=== PATIENT | male | born 1970 | race Caucasian/White ===

== ENCOUNTER → 2016-08-11 | Outpatient (CLI) | payer MEDICARE | LOC: SLEEP 21:30 | DX: G47.33 Obstructive sleep apnea (adult) (pediatric) (principal) | CPT/HCPCS: 95811 ==

== ENCOUNTER 2016-09-10 10:32 | Emergency (ER) | payer MEDICARE ==
[2016-09-10 12:04] LABS: HEMOGLOBIN 12.9 gm/dl (14.0-17.5); RED BLOOD COUNT 4.33 M/UL (4.20-5.50); WHITE BLOOD COUNT 9.9 K/UL (4.5-11.0)
[2016-09-10 12:19] LABS: BUN/CREATININE RATIO 26 (0-10)
== END 2016-09-10 13:45 | disposition home or self-care (01) ==
LOC: ER1 10:32
PROVIDERS: Emergency Medicine
DX: L03.115 Cellulitis of right lower limb (principal); I10 Essential (primary) hypertension; J44.9 Chronic obstructive pulmonary disease, unspecified; M19.90 Unspecified osteoarthritis, unspecified site; G47.30 Sleep apnea, unspecified
CPT/HCPCS: 36415; 80048; 85025; 93971; 99284

== ENCOUNTER 2017-01-22 00:26 | Emergency (ER) | payer MEDICARE | END 2017-01-23 02:50 | disposition home or self-care (01) | LOC: ER1 00:26 | DX: T82.898A Other specified complication of vascular prosthetic devices, implants and grafts, initial encounter (principal); L03.115 Cellulitis of right lower limb; I10 Essential (primary) hypertension; R60.0 Localized edema; F17.210 Nicotine dependence, cigarettes, uncomplicated | CPT/HCPCS: 96374; 99283; J0878; J7050 ==

== ENCOUNTER → 2017-01-23 | Outpatient (CLI) | payer MEDICARE | LOC: OPSV 10:05 | DX: L97.309 Non-pressure chronic ulcer of unspecified ankle with unspecified severity (principal) ==

== ENCOUNTER → 2021-10-04 | Outpatient (CLI) | payer OTHER ==
[~2021-10-04] MED LIST: BACTROBAN NASAL1 G1 TOP; KEFLEX CAP 500500 MG PO; PREDNISONE 50 M50 MG PO
== END ==
LOC: KOH-I 14:08
DX: M54.2 Cervicalgia (principal); M54.6 Pain in thoracic spine; M54.50 Low back pain, unspecified; R05.9 Cough, unspecified
CPT/HCPCS: 71046; 72040; 72070; 72100

== ENCOUNTER → 2021-10-11 | Outpatient (CLI) | payer OTHER | LOC: HEART 5 14:20 | DX: J44.9 Chronic obstructive pulmonary disease, unspecified (principal) | CPT/HCPCS: 94060; 94729 ==

== ENCOUNTER 2021-10-24 11:41 | Emergency (ER) | payer OTHER ==
[~2021-10-24] VITALS: Ht 185.4 cm; Wt 172.4 kg
[2021-10-24 13:27] LABS: HEMOGLOBIN 16.1 gm/dl (14.0-17.5); RED BLOOD COUNT 5.19 M/UL (4.20-5.50); WHITE BLOOD COUNT 29.9 K/UL (4.5-11.0)
[2021-10-24 15:21] LABS: ADENOVIRUS F 40/41 Not Detected (Negative); ASTROVIRUS Not Detected (Negative); CAMPYLOBACTER Not Detected (Negative); CRYPTOSPORIDIUM Not Detected (Negative); E.COLI 0157 Not Detected (Negative); ENTAMOEBA HISTOLYTICA Not Detected (Negative); ENTEROAGGREGATIVE E.COLI (EAEC Not Detected (Negative); ENTEROPATHOGENIC E.COLI (EPEC) Not Detected (Negative); ENTEROTOXIGENIC E.COLI (ETEC) Not Detected (Negative); GIARDIA LAMBLIA Not Detected (Negative); NOROVIRUS GI/GII Not Detected (Negative); PLESIOMONAS SHIGELLOIDES Not Detected (Negative); ROTOVIRUS A Not Detected (Negative); SALMONELLA Not Detected (Negative); SAPOVIRUS Not Detected (Negative); SHIG/ENTEROINVAS.ECOLI (EIEC) Not Detected (Negative); SHIGA-LIK TOX.PRO.E.COLI (STEC Not Detected (Negative); VIBRIO Not Detected (Negative); VIBRIO CHOLERAE Not Detected (Negative); YERSINIA ENTEROCOLITICA Not Detected (Negative)
[2021-10-24 17:11] LABS: CLOSTRIDIUM DIFFICILE TOX A/B Not Detected (Negative)
[2021-10-25 10:39] LABS: CANDIDA ALBICANS Not Detected (Negative); CANDIDA KRUSEI Not Detected (Negative); CANDIDA TROPICALIS Not Detected (Negative); ESCHERICHIA COLI Not Detected (Negative); HAEMOPHILUS INFLUENZAE Not Detected (Negative); KLEBSIELLA OXYTOCA Not Detected (Negative); KLEBSIELLA PNEUMONIAE Not Detected (Negative); KPC-CARBAPENEM-RESISTANCE GENE Not Detected (Negative); PROTEUS Not Detected (Negative); PSEUDOMONAS AERUGINOSA Not Detected (Negative); SERRATIA MARCESANS Not Detected (Negative); STAPHYLOCOCCUS AUREUS Not Detected (Negative); STREP AGALACTIAE (GROUP B) Not Detected (Negative); STREP PYOGENES (GROUP A) Not Detected (Negative); STREPTOCOCCUS Not Detected (Negative); vanA/B (VANCOMYCIN RESIST GENE Not Detected (Negative)
[2021-10-25 10:40] LABS: STAPHYLOCOCCUS DETECTED (Negative)
== END 2021-10-24 19:30 | disposition short-term general hospital (02) ==
LOC: ER1 11:41
PROVIDERS: Physician Assistant
DX: T79.6XXA Traumatic ischemia of muscle, initial encounter (principal); S70.01XA Contusion of right hip, initial encounter; N17.9 Acute kidney failure, unspecified; I77.1 Stricture of artery; R19.7 Diarrhea, unspecified; R19.5 Other fecal abnormalities; J44.9 Chronic obstructive pulmonary disease, unspecified; I10 Essential (primary) hypertension; W19.XXXA Unspecified fall, initial encounter
CPT/HCPCS: 72125; 72128; 72131; 73501; 73502; 73552; 73590; 73610; 80053; 81001; 82272; 82550; 82553; 83605; 84484; 85025; 85610; 85730; 87040; 87086; 87150; 87507; 93005; 93926; 96361; 96374; 96375; 99285; C9113; J2270